=== PATIENT | male | born 1985 | race Caucasian/White ===

== ENCOUNTER 2017-11-10 00:59 | Emergency (ER) | payer OTHER ==
[~2017-11-10] VITALS: Ht 188 cm; Wt 98.4 kg
[~2017-11-10 00:59] MED LIST: AMOXICILLIN500 MG PO; BUPROPION HCL150 M2 PO; CORTISPORIN EAR10 M1 OT; DILAUDID2 MG PO; FLEXERIL10 MG PO; MORPHINE SULFAT30 M2 PO; NAPROSYN500 MG PO; NAPROXEN500 MG PO; PERCOCET 5/31 TABLET PO; PREDNISONE50 MG PO; SENNA LAX8.6 MG PO; SKELAXIN800 MG PO; ULTRAM50 MG PO
[2017-11-10 01:01] VITALS: BP 143/105
[2017-11-10] MEDS ORDERED: KEFLEX500 MG PO (03:06)
== END 2017-11-10 02:49 | disposition home or self-care (01) ==
LOC: EME 00:59
DX: L98.9 Disorder of the skin and subcutaneous tissue, unspecified (principal); R21 Rash and other nonspecific skin eruption; F17.200 Nicotine dependence, unspecified, uncomplicated
CPT/HCPCS: 99281; 99284